=== PATIENT | female | born 1980 | race Two or more races ===

== ENCOUNTER 2020-11-04 07:30 | Emergency (ER) | payer OTHER ==
[~2020-11-04] VITALS: Ht 167.6 cm; Wt 86.2 kg
[2020-11-04] MEDS ORDERED: LIDOCAINE 1% HCL (LOCAL ANESTH.) INJ 20ML MDV IJ ONE (07:45)
[2020-11-04 08:11] VITALS: BP 139/55
[2020-11-04] MEDS ORDERED: TETANUS-DIPTH-ACEL PERTUSSIS 0.5ML SYR Tdap IM ONE (08:15)
== END 2020-11-04 08:34 | disposition home or self-care (01) ==
LOC: ER 07:30
DX: S61.211A Laceration without foreign body of left index finger without damage to nail, initial encounter (principal); W26.0XXA Contact with knife, initial encounter; Y93.89 Activity, other specified; Y92.89 Other specified places as the place of occurrence of the external cause; Y99.8 Other external cause status
CPT/HCPCS: 12002; 90471; 90715; 99283; J2001